=== PATIENT | female | born 2000 | race Two or more races ===

== ENCOUNTER 2024-12-29 18:50 | Emergency (ER) | payer BC ==
[~2024-12-29] VITALS: Ht 175.3 cm; Wt 77.1 kg
[2024-12-29 19:50] LABS: POTASSIUM 3.9 mmol/L (3.5-5.1)
[2024-12-29 19:51] LABS: BASOPHILS # (AUTO) 0.1 K/UL (0.0-0.2); CALCIUM 9.4 mg/dL (8.5-10.1); CREATININE 0.9 mg/dL (0.6-1.3); EOSINOPHILS # (AUTO) 0.1 K/uL (0.0-0.7); EOSINOPHILS % (AUTO) 1.3 % (0.0-7.0); HEMATOCRIT 39.1 % (31.2-41.9); LYMPHOCYTES % (AUTO) 41.6 % (20.5-51.5); MEAN CORPUSCULAR HEMOGLOBIN 29.6 uug (24.7-32.8); MEAN CORPUSCULAR HGB CONC 33 g/dL (32.3-35.6); MEAN CORPUSCULAR VOLUME 88.9 fL (75.5-95.3); MONOCYTES # (AUTO) 0.5 K/uL (0.1-1.30); MONOCYTES % (AUTO) 7.4 % (0.0-11.0); NEUTROPHILS # (AUTO) 3.5 K/uL (1.8-8.9); NEUTROPHILS % (AUTO) 48.7 % (38.5-71.5); PLATELET COUNT (AUTO) 277 K/uL (179-408); RED CELL DISTRIBUTION WIDTH 13.6 % (12.3-17.7); WHITE BLOOD COUNT (AUTO) 7.3 K/uL (3.8-11.8)
[2024-12-29 19:57] LABS: DIFFERENTIAL COMMENT 1
[2024-12-29 20:03] LABS: ALBUMIN 3.4 g/dL (3.4-5.0); BILIRUBIN,DIRECT 0.1 mg/dL (0.0-0.2); BILIRUBIN,TOTAL 0.2 mg/dL (0.2-1.0); TOTAL PROTEIN, SERUM 7.9 g/dL (6.4-8.2)
[2024-12-29] MEDS ORDERED: RIVA10TA PO (23:45)
[2024-12-29] MEDS ORDERED: IBUP-1955 PO (23:45)
[2024-12-29 23:51] VITALS: BP 118/79; O2SAT 99
== END 2024-12-29 23:55 | disposition home or self-care (01) ==
LOC: ER 19:07
DX: I80.8 Phlebitis and thrombophlebitis of other sites (principal); R07.9 Chest pain, unspecified; Z79.01 Long term (current) use of anticoagulants; Z85.41 Personal history of malignant neoplasm of cervix uteri
CPT/HCPCS: 36415; 71045; 85025; A4606; A4663